=== PATIENT | female | born 1935 | race Caucasian/White ===

== ENCOUNTER 2018-06-15 15:12 | Observation (INO) | payer OTHER ==
[~2018-06-15] VITALS: Ht 156.2 cm; Wt 65.9 kg
[~2018-06-15 15:12] MED LIST: LISINOPRIL-HCT1 EACH PO; LOSARTAN POTASS50 MG PO; NIFEDIPINE ER30 MG PO
[2018-06-15 15:39] LABS: BASOPHIL (%) 0.3 % (0-1); EOSINOPHIL (%) 0.3 % (0-5); HEMATOCRIT 41.2 % (36.0-46.0); HEMOGLOBIN 14.2 G/DL (11.9-15.5); IMMATURE GRANULOCYTE (%) 0.5 % (0.0-0.7); LYMPHOCYTE (%) 15.9 % (15-42); LYMPHOCYTE COUNT 1.9 K/uL (1.0-2.8); MCH 30.9 PG (29.0-34.0); MCHC 34.5 G/DL (30.0-36.0); MCV 89.6 FL (83-99); MONOCYTE (%) 4.9 % (3-12); MONOCYTE COUNT 0.6 K/uL (0-0.8); NEUTROPHIL (%) 78.1 % (45-76); NEUTROPHIL COUNT 9.4 K/uL (1.8-6.4); PLATELET COUNT 234 K/uL (156-360); RBC DIS.WIDTH-SD 38.8 % (39-53)
[2018-06-15 15:48] LABS: CHLORIDE 105 mEq/L (99-109); POTASSIUM 3.9 mEq/L (3.7-5.4); SODIUM 140 mEq/L (136-147)
[2018-06-15 15:50] LABS: GLUCOSE 191 mg/dL (70-99)
[2018-06-15 15:54] LABS: CREATININE 1.8 mg/dL (0.6-1.3); GFR ESTIMATE (CALCULATED) 29 mL/min/
[2018-06-15 15:55] LABS: UREA NITROGEN (BUN) 15 mg/dL (9-23)
[2018-06-15 16:02] LABS: TROP-I INTERPRETATION NEGATIVE; TROPONIN-I < 0.01 ng/mL (0.0-0.30)
[2018-06-15] MEDS ORDERED: COZAAR50 MG PO (18:16)
[2018-06-15] MEDS ORDERED: PROCARDIA XL30 MG PO (18:16)
[2018-06-15] MEDS ORDERED: PRAVACHOL40 MG PO (18:16)
[2018-06-15 19:59] LABS: TOTAL PROTEIN 6.9 g/dL (6.4-8.3)
[2018-06-15 20:01] LABS: TOTAL BILIRUBIN 0.6 mg/dL (0.0-1.0)
[2018-06-15 20:02] LABS: ALKALINE PHOSPHATASE 99 IU/L (3-129)
[2018-06-15 20:04] LABS: AST (GOT) 21 IU/L (2-34)
[2018-06-15 20:05] LABS: ALT (GPT) 20 IU/L (3-49); DIRECT BILIRUBIN 0.2 mg/dL (0.0-0.3); URIC ACID 7.1 mg/dL (3.1-9.2)
[2018-06-15 20:55] LABS: THYROTROPIN (TSH) 1.1 MIU/L (0.4-5.5)
[2018-06-15 21:05] VITALS: BP 123/59
[2018-06-15 22:27] LABS: TROP-I INTERPRETATION NEGATIVE; TROPONIN-I < 0.01 ng/mL (0.0-0.30)
[2018-06-16 00:44] VITALS: BP 129/61
[2018-06-16 04:30] VITALS: BP 162/74
[2018-06-16 05:12] LABS: APPEARANCE SL.HAZY ((CLEAR)); BILIRUBIN NEGATIVE; BLOOD SMALL; COLOR YELLOW ((YELLOW)); GLUCOSE (STRIP) NEGATIVE; KETONES NEGATIVE; LEUKOCYTES TRACE; NITRITE NEGATIVE; PROTEIN (STRIP) NEGATIVE; SPECIFIC GRAVITY 1.012 (1.000-1.030); UROBILINOGEN 0.2 MG/DL (0.2-1.0)
[2018-06-16 05:24] LABS: BACTERIA NONE SEEN /HPF; EPITHELIAL CELLS 1+ /HPF; MUCUS TRACE /LPF; RED BLOOD CELLS 0-5 /HPF (0-5); WHITE BLOOD CELLS 0-5 /HPF (0-5)
[2018-06-16 05:27] LABS: BASOPHIL (%) 0.4 % (0-1); EOSINOPHIL (%) 0.3 % (0-5); HEMATOCRIT 39.7 % (36.0-46.0); HEMOGLOBIN 13.5 G/DL (11.9-15.5); IMMATURE GRANULOCYTE (%) 0.3 % (0.0-0.7); LYMPHOCYTE (%) 22.1 % (15-42); LYMPHOCYTE COUNT 2.3 K/uL (1.0-2.8); MCH 30.5 PG (29.0-34.0); MCV 89.8 FL (83-99); MONOCYTE (%) 6.1 % (3-12); MONOCYTE COUNT 0.6 K/uL (0-0.8); NEUTROPHIL (%) 70.8 % (45-76); NEUTROPHIL COUNT 7.3 K/uL (1.8-6.4); PLATELET COUNT 241 K/uL (156-360); RBC DIS.WIDTH-CV 11.9 % (11.8-14.6); RBC DIS.WIDTH-SD 38.8 % (39-53); RED BLOOD COUNT 4.42 M/uL (3.80-5.20); WHITE BLOOD COUNT 10.3 K/uL (4.1-10.2)
[2018-06-16 05:47] LABS: TROP-I INTERPRETATION NEGATIVE; TROPONIN-I < 0.01 ng/mL (0.0-0.30)
[2018-06-16 06:08] LABS: CHLORIDE 108 MEQ/L (99-109); GFR ESTIMATE (CALCULATED) 50 mL/min/; SODIUM 142 MEQ/L (136-147); UREA NITROGEN (BUN) 16 mg/dL (9-23)
[2018-06-16 06:38] LABS: CREATININE 1.1 MG/DL (0.6-1.3); GLUCOSE 114 mg/dL (70-99)
[2018-06-16 07:44] VITALS: BP 146/70
== END 2018-06-16 11:39 | disposition home or self-care (01) ==
LOC: EME 15:12 → EDOF 19:22 → ENRESERV 19:24 → 4SOUTH 20:57
PROVIDERS: Emergency Medicine; Hospitalist
DX: N17.9 Acute kidney failure, unspecified (principal); R55 Syncope and collapse; E86.0 Dehydration; I95.9 Hypotension, unspecified; I10 Essential (primary) hypertension; E78.5 Hyperlipidemia, unspecified; R41.81 Age-related cognitive decline; R73.9 Hyperglycemia, unspecified; Z80.0 Family history of malignant neoplasm of digestive organs
CPT/HCPCS: 70450; 71045; 76536; 80048; 80076; 81003; 82436; 82607; 84133; 84300; 84443; 84484; 84550; 85025; 93005; 99281; 99284; G0378; J1644; J7030